=== PATIENT | female | born 1995 | race Caucasian/White ===

== ENCOUNTER 2018-02-23 09:44 | Emergency (ER) | payer BC ==
[~2018-02-23] VITALS: Ht 165.1 cm; Wt 66.0 kg
[2018-02-23 09:51] VITALS: BP 158/75; PULSE 81; RESP 16; TEMP 98.7; O2SAT 100
[2018-02-23 10:30] VITALS: PULSE 77; RESP 16; O2SAT 100
[2018-02-23 10:32] LABS: AUTOMATED NEUTROPHIL # 2.5 TH/MM3 (1.8-7.7); BASOPHIL % 1.1 % (0.0-2.0); EOSINOPHIL # 0.1 TH/MM3 (0-0.4); EOSINOPHIL % 3.4 % (0.0-4.0); HEMATOCRIT 40.4 % (35.0-46.0); HEMOGLOBIN 13.8 GM/DL (11.6-15.3); LYMPH % 28.2 % (9.0-44.0); LYMPHOCYTE # 1.1 TH/MM3 (1.0-4.8); MEAN CELL VOLUME 86.2 FL (80.0-100.0); MEAN CORPUSCULAR HEMOGLOBIN 29.5 PG (27.0-34.0); MEAN CORPUSCULAR HGB CONC 34.2 % (32.0-36.0); MEAN PLATELET VOLUME 8.6 FL (7.0-11.0); MONO % 7.6 % (0.0-8.0); MONOCYTE # 0.3 TH/MM3 (0-0.9); NEUT % 59.7 % (16.0-70.0); PLATELET COUNT 213 TH/MM3 (150-450); RED BLOOD COUNT 4.68 MIL/MM3 (4.00-5.30); RED CELL DISTRIBUTION WIDTH 12.5 % (11.6-17.2)
[2018-02-23 10:52] LABS: CHLORIDE 107 MEQ/L (98-107); SODIUM (NA) 141 MEQ/L (136-145)
[2018-02-23 10:55] LABS: BICARBONATE 22.5 MEQ/L (21.0-32.0); BLOOD UREA NITROGEN 9 MG/DL (7-18); CALCIUM 8.8 MG/DL (8.5-10.1); GLUCOSE,RANDOM 105 MG/DL (74-106)
[2018-02-23 10:59] LABS: CREATININE 0.76 MG/DL (0.50-1.00); GLOMERULAR FILTRATION RATE 96 ML/MIN (>89)
[2018-02-23 11:03] LABS: TROPONIN I LESS THAN 0.02 NG/ML (0.02-0.05)
--- NOTE | 2018-02-23 11:48 | PD ---
HPI Chief Complaint: Cardiac Complaint Time Seen by Provider: 11:35 Travel History International Travel<30 days: Yes Contact w/Intl Traveler<30days: Yes Name of Country Traveled to: [facility] Traveled to known affect area: No History of Present Illness HPI This 22-year-old female is complaining that her heart is beating hard for several days. She is not described beating fast but she feels like it is beating harder than usual. She is generally quite active in athletics. She has not had trouble like this before. She is not on any medication. She has no history of thyroid illness. She was in [facility] until about February 09. She was on malaria pills doxycycline. She has not had any fever since she has been home. The sensation is worse when she lays flat. PFSH Past Medical History Medical History: Denies Significant Hx Diminished Hearing: No Tetanus Vaccination: Unknown ?: Not Social History Alcohol Use: No Tobacco Use: No Substance Use: No Allergies-Medications (Allergen,Severity, Reaction): Coded Allergies: No Known Allergies (Unverified , 02/23/18) Reported Meds & Prescriptions Reported Meds & Active Scripts Active No Active Prescriptions or Reported Medications Review of Systems Except as stated in HPI: all other systems reviewed are Neg Cardiovascular: Positive: Palpitations Physical Exam Narrative GENERAL: Well-developed female SKIN: Focused skin assessment warm/dry. HEAD: Atraumatic. Normocephalic. EYES: Pupils equal and round. No scleral icterus. No injection or drainage. ENT: No nasal bleeding or discharge. Mucous membranes pink and moist. NECK: Trachea midline. No JVD. CARDIOVASCULAR: Regular rate and rhythm. No murmur appreciated. RESPIRATORY: No accessory muscle use. Clear to auscultation. Breath sounds equal bilaterally. GASTROINTESTINAL: Abdomen soft, non-tender, nondistended. Hepatic and splenic margins not palpable. MUSCULOSKELETAL: No obvious deformities. No clubbing. No cyanosis. No edema. NEUROLOGICAL: Awake and alert. No obvious cranial nerve deficits. Motor grossly within normal limits. Normal speech. PSYCHIATRIC: Appropriate mood and affect; insight and judgment normal. Data Data Last Documented VS Vital Signs Date Time Temp Pulse Resp B/P (MAP) Pulse Ox O2 Delivery O2 Flow Rate FiO2 02/23/18 12:25 89 18 119/69 (86) 97 Room Air 02/23/18 09:51 98.7 Orders Orders Electrocardiogram (02/23/18 09:57) Complete Blood Count With Diff (02/23/18 10:24) Basic Metabolic Panel (Bmp) (02/23/18 10:24) Ckmb (Isoenzyme) Profile (02/23/18 10:24) Troponin I (02/23/18 10:24) CKMB (02/23/18 10:25) CKMB% (02/23/18 10:25) Urinalysis - C+S If Indicated (02/23/18 11:44) Magnesium (Mg) (02/23/18 11:44) Thyroid Stimulating Hormone (02/23/18 11:44) Ed Urine Pregnancytest Poc (02/23/18 11:53) Labs Laboratory Tests Test 02/23/18 10:25 02/23/18 11:30 White Blood Count 4.0 TH/MM3 Red Blood Count 4.68 MIL/MM3 Hemoglobin 13.8 GM/DL Hematocrit 40.4 % Mean Corpuscular Volume 86.2 FL Mean Corpuscular Hemoglobin 29.5 PG Mean Corpuscular Hemoglobin Concent 34.2 % Red Cell Distribution Width 12.5 % Platelet Count 213 TH/MM3 Mean Platelet Volume 8.6 FL Neutrophils (%) (Auto) 59.7 % Lymphocytes (%) (Auto) 28.2 % Monocytes (%) (Auto) 7.6 % Eosinophils (%) (Auto) 3.4 % Basophils (%) (Auto) 1.1 % Neutrophils # (Auto) 2.5 TH/MM3 Lymphocytes # (Auto) 1.1 TH/MM3 Monocytes # (Auto) 0.3 TH/MM3 Eosinophils # (Auto) 0.1 TH/MM3 Basophils # (Auto) 0.0 TH/MM3 CBC Comment DIFF FINAL Differential Comment Blood Urea Nitrogen 9 MG/DL Creatinine 0.76 MG/DL Random Glucose 105 MG/DL Calcium Level 8.8 MG/DL Sodium Level 141 MEQ/L Potassium Level 3.7 MEQ/L Chloride Level 107 MEQ/L Carbon Dioxide Level 22.5 MEQ/L Anion Gap 12 MEQ/L Estimat Glomerular Filtration Rate 96 ML/MIN Magnesium Level 1.9 MG/DL Total Creatine Kinase 111 U/L Creatine Kinase MB LESS THAN 0.5 NG/ML Troponin I LESS THAN 0.02 NG/ML Thyroid Stimulating Hormone 3rd Gen 2.610 uIU/ML Urine Collection Type CLEAN CATCH Urine Color STRAW Urine Turbidity CLEAR Urine pH 5.5 Urine Specific [place] LESS/EQUAL 1.005 Urine Protein NEG mg/dL Urine Glucose (UA) NEG mg/dL Urine Ketones NEG mg/dL Urine Occult Blood NEG Urine Nitrite NEG Urine Bilirubin NEG Urine Urobilinogen 0.2 MG/DL Urine Leukocyte Esterase TRACE Urine WBC 0-2 /hpf Urine Squamous Epithelial Cells 0-5 /hpf Microscopic Urinalysis Comment CULT NOT INDICATED MDM Medical Decision Making Medical Screen Exam Complete: Yes Emergency Medical Condition: Yes Medical Record Reviewed: Yes Differential Diagnosis Differential includes palpitations, anxiety, anemia Narrative Course EKG shows sinus rhythm. She is not tachycardic. The panel of blood work was done including thyroid hemoglobin electrolytes and glucose and no abnormalities were found. Patient appears stable. She will be released and I recommended she follow-up with her own doctor be reevaluated if symptoms should change Diagnosis Primary Impression: Palpitations Scripts No Active Prescriptions or Reported Meds Disposition: 01 DISCHARGE HOME Condition: Stable Clemente Dao MD Feb 23, 2018 11:48
[2018-02-23 11:59] LABS: MAGNESIUM 1.9 MG/DL (1.5-2.5)
[2018-02-23 12:05] LABS: BILIRUBIN, URINE NEG (NEG); BLOOD, URINE NEG (NEG); GLUCOSE,URINE NEG (NEG); KETONE, URINE NEG (NEG); NITRITE,URINE NEG (NEG); PH, URINE 5.5 (5.0-8.5); URINE LEUKOCYTE ESTERASE TRACE (NEG)
[2018-02-23 12:09] LABS: URINE COLOR STRAW (YELLW/STRAW); WBC, URINE 0-2 /hpf (0-5)
[2018-02-23 12:10] LABS: SQUAMOUS EPITHELIAL CELL URINE 0-5 /hpf (0-5)
[2018-02-23 12:25] VITALS: BP 119/69; PULSE 89; RESP 18; O2SAT 97
[2018-02-23 13:08] VITALS: BP 112/66
--- NOTE | 2018-02-23 18:14 | EKG ---
Date Performed: 02/23/2018 Time Performed: 10:10:28 PTAGE: 22 years EKG: Sinus rhythm NORMAL ECG NO PREVIOUS TRACING DOCTOR: Daphney Dean Interpretating Date/Time 02/23/2018 18:11:33
== END 2018-02-23 13:15 | disposition home or self-care (01) ==
LOC: PHED 09:44
DX: R00.2 Palpitations (principal)
CPT/HCPCS: 80048; 81001; 82550; 82552; 83735; 84443; 84484; 84703; 85025; 93005